=== PATIENT | female | born 1995 | race African-American/Black ===

== ENCOUNTER 2024-05-28 08:46 | Emergency (ER) | payer MEDICAID, OTHER ==
[~2024-05-28] VITALS: Ht 170.2 cm; Wt 74.4 kg
[~2024-05-28 08:46] MED LIST: ALBU0.084
--- NOTE | 2024-05-28 09:31 | ED.PDOC ---
HEAD SETTER HPI Comments 28-year-old female presents with a chief complaint of vaginal bleeding. Patient states that on Friday she went to [facility], and was told on Friday after doing blood tests that she was . However, patient states that she has been having pelvic cramping and vaginal bleeding and most recently passed a large clot that looked like products of conception. Patient reports that on Friday her HCG level was 3000 and then on Friday it was 3060. Patient reports that she was instructed to follow-up with a hospital for a possible DNC. Patient denies having an HEAD SETTER. Chief Complaint: Vaginal Bleed Time Seen by MD: 08:59 Reviewed Notes: Medications, Allergies Allergies: Coded Allergies: NO KNOWN ALLERGIES (Unverified , 03/23/11) Home Meds Reported Medications Albuterol Sulfate (Albuterol Sulfate) 0.083 % Neb 03/23/11 Information Source: Patient Mode of Arrival: Ambulatory Timing: Days Prehospital treatment: None Bleeding Quality: Clotted, Products of Conception Past Medical History PAST MEDICAL HISTORY: Denies Surgical History: Denies all surgeries WARP SCOURING VAT TENDER History: No Pertinent WARP SCOURING VAT TENDER History Family History Family History: Reviewed,noncontributory to illness, No family hx of Cancer, No family hx of DM, No family hx of Heart jeanmarie, No family hx of HTN, No family hx ofKidney jeanmarie, No family hx of Liver jeanmarie, No family hx of Lung jeanmarie, No family hx of Stroke Social History Smoker: Non-Smoker Alcohol: Denies ETOH Use Drugs: Denies Drug Use Constitutional: denies: chills, diaphoresis, fatigue, fever, malaise, sweats, weakness, others EENTM: denies: blurred vision, double vision, ear bleeding, ear discharge, ear drainage, ear pain, ear ringing, eye pain, eye redness, hearing loss, mouth pain, mouth swelling, nasal discharge, nose bleeding, nose congestion, nose pain, photophobia, tearing, throat pain, throat swelling, voice changes, others Respiratory: denies: cough, hemoptysis, orthopnea, SOB at rest, shortness of breath, SOB with excertion, stridor, wheezing, others Cardiovascular: denies: chest pain, dizzy spells, diaphoresis, Dyspnea on exertion, edema, irregular heart beat, left arm pain, lightheadedness, palpitations, PND, syncope, others Gastrointestinal: reports: abdominal pain; denies: abdomen distended, blood streaked bowels, constipated, diarrhea, dysphagia, difficulty swallowing, hematemesis, melena, nausea, poor appetite, poor fluid intake, rectal bleeding, rectal pain, vomiting, others Genitourinary: reports: abnormal vagina bleeding, ; denies: burning, dyspareunia, dysuria, flank pain, frequency, hematuria, incontinence, pain, vagina discharge, urgency, others Neurological: denies: dizziness, fainting, headache, left sided numbness, left sided weakness, numbness, paresthesia, pre-existing deficit, right sided numbness, right sided weakness, seizure, speech problems, tingling, tremors, weakness, others Musculoskeletal: denies: back pain, gout, joint pain, joint swelling, muscle pain, muscle stiffness, neck pain, others Integumetry: denies: bruises, change in color, change in hair/nails, dryness, laceration, lesions, lumps, rash, wounds, others Allergic/Immunocompromised: denies: Difficulty Healing, Frequent Infections, Hives, Itching, others Hematologic/Lymphatic: denies: anemia, blood clots, easy bleeding, easy bruising, swollen glands, others Endocrine: denies: excessive hunger, excessive sweating, excessive thirst, excessive urination, flushing, intolerance to cold, intolerance to heat, unexplained weight gain, unexplained weight loss, others Psychiatric: denies: anxiety, bipolar disorder, depression, hopeless, panic disorder, schizophrenia, sleepless, suicidal, others All Other Systems: Reviewed and Negative Physical Exam General Appearance: No Apparent Distress, Normal HEENT: Normal ENT Inspection, Pharynx Normal, TMs Normal Neck: Full Range of Motion, Non-Tender, Normal, Normal Inspection Respiratory: Chest Non-Tender, Lungs Clear, No Accessory Muscle Use, No Respiratory Distress, Normal Breath Sounds Cardiovascular: No Edema, No JVD, No Murmur, No Gallop, Normal Peripheral Pulses, Regular Rate/Rhythm Breast Exam: Deferred Gastrointestinal: No Organomegaly, Non Tender, No Pulsatile Mass, Normal Bowel Sounds, Soft Genitalia: Deferred Pelvic: Other (MILD DIFFUSE LOWER ABDOMEN PAIN) Rectal: Deferred Extremities: No calf tenderness, Normal capillary refill, Normal inspection, Normal range of motion, Non-tender, No pedal edema Musculoskeletal : Apperance: Normal Neurologic: Alert, client evaluator II-XII nml as Tested, No Motor Deficits, Normal Affect, Normal Mood, No Sensory Deficits Cerebellar Function: Normal Reflexes: Normal Skin: Dry, Normal Color, Warm Lymphatic: No Adenopathy Was a procedure done? Was a procedure done?: No Differential Diagnosis (WARP SCOURING VAT TENDER) Vaginal Bleeding: - Complete, - Incomplete, - Inevitable, - Missed, - Threatened, Ectopic , Menorrhagia, UTI Vaginal Discharge: X-Ray, Labs, Meds, VS Vital Signs Date Time Temp Pulse Resp B/P (MAP) Pulse Ox O2 Delivery O2 Flow Rate FiO2 05/28/24 10:19 91 91 98 Room Air 05/28/24 10:19 91 18 113/65 (81) 98 05/28/24 08:59 98.2 98 16 104/58 (73) 98 Lab Test 05/28/24 09:58 05/28/24 08:55 Range/Units White Blood Count 4.6 4.4-10.8 10^3/uL Red Blood Count 3.90 L 4.0-5.20 10^6/uL Hemoglobin 11.8 L 12.2-16.2 g/dL Hematocrit 35.6 L 36.0-46.0 % Mean Corpuscular Volume 91.2 80.0-100.0 fL Mean Corpuscular Hemoglobin 30.4 28.0-32.0 pg Mean Corpuscular Hemoglobin Concent 33.3 32.0-36.0 g/dL Red Cell Distribution Width 15.3 H 11.8-14.3 % Platelet Count 281 140-450 10^3/uL Mean Platelet Volume 7.2 6.9-10.8 fL Neutrophils (%) (Auto) 51.1 37.0-80.0 % Lymphocytes (%) (Auto) 37.5 10.0-50.0 % Monocytes (%) (Auto) 9.5 0.0-12.0 % Eosinophils (%) (Auto) 1.4 0.0-7.0 % Basophils (%) (Auto) 0.5 0.0-2.0 % Neutrophils # (Auto) 2.4 1.6-8.6 10 ^3/uL Lymphocytes # (Auto) 1.7 0.4-5.4 10 ^3/uL Monocytes # (Auto) 0.4 0-1.3 10 ^3/uL Eosinophils # (Auto) 0.1 0-0.8 10 ^3/uL Basophils # (Auto) 0 0-0.2 10 ^3/uL Nucleated Red Blood Cells 0.0 % Sodium Level 138 136-145 mmol/L Potassium Level 3.9 3.5-5.1 mmol/L Chloride Level 106 98-107 mmol/L Carbon Dioxide Level 27 20-31 mmol/L Anion Gap 5 5-15 Blood Urea Nitrogen 7 L 9-23 mg/dL Creatinine 0.72 0.550-1.02 mg/dL Glomerular Filtration Rate Calc 116 >90 mL/min BUN/Creatinine Ratio 9.7 L 10.0-20.0 Serum Glucose 95 74-106 mg/dL Calcium Level 9.5 8.7-10.4 mg/dL Beta HCG, Quantitative 2304.6 H 1.5-4.2 mIU/mL Urine Test Positive Negative Current Medications Medications (Trade) Dose Ordered Sig/Corrine Route Start Time Stop Time Status Last Admin Acetaminophen (Tylenol Tablet Or Capsule) 500 mg ONCE ONCE PO 05/28/24 09:45 05/28/24 09:46 DC 05/28/24 09:45 PATIENT: JUDY CHINCHILLA AACCT: [id number]: [id number] : 1995 LOC: ER ROOM / BED: / AGE / SEX: 28 / F ADM STATUS: REG ER SERVICE 0000 ORDERING PHYSICIAN: ANGEL LEAL MD PROCEDURE(s): OBTVG - OB TRANS VAGINAL US REASON: R/O ECTOPIC ORDER NUMBER(s): [id number], ACCESSION NUMBER(s): [id number] OB ULTRASOUND <14 WEEKS: HISTORY: ro ectopic TECHNIQUE: Multiple real-time grayscale sonographic images of the pelvis with duplex Doppler color flow, spectral and M-mode analysis. TRANSDUCERS: Transabdominal and transvaginal FINDINGS: The uterus measures 9 x 6 x 5 cm The cervix not visualized. Right ovary measures 3x 1 x 2 cm with normal Doppler color flow Left ovary measures 3 x 2 x 2 cm with normal Doppler color flow No gestational sac is noted. There is a left adnexal structure with ring of fire sign present. IMPRESSION: No gestational sac is noted. There is a 2 x 2 x 2 cm left adnexal structure with ring of fire sign present. Ectopic not excluded. Correlate with beta hCGs. Critical Result: Ectopic Findings discussed with Dr. Suárez , at 05/28/2024 12:08 PM, and acknowledged receipt and understanding of the findings. .. ATED BY: THA PEREIRA MD DICTATED DATE/TIME: 05/28/241208 SIGNED BY: THA PEREIRA MD SIGNED DATE/TIME: 05/28/24 120 28-year-old female presents here with vaginal bleeding lower uterine cramping. Blood work has been done which demonstrates a beta quant proximally 2300. Ultrasound transvaginally has not done which does demonstrate concern for left- sided ectopic . I immediately consulted OBGYN Dr. Brennan and asked him to see the patient. He has physically seen the patient in the ER please see his notes further details. At this point he would like to follow serial beta hCG. He has requested the patient return back to the ER in 2 days for another HCG. He advised given the ectopic small and patient is currently stable safe for current discharge. I discussed the case with patient and ju velasco. They are comfortable with the plan. They have good access to a car and state they live 5 minutes away. I spoke to both of them advised that if any point she has worsening of symptoms or does not look well they need to return back to the ER immediately. Both understand and are agreeable with the plan. Patient is Rh positive and does not require RhoGAM. Patient has a sample of the paroxetine conception that she passed, is requesting be sent for pathology to determine if this fetus or blood Time of 1ST Reevaluation: 10:00 Reevaluation 1ST: Unchanged Time of 2ND Reevaluation: 13:45 Reevaluation 2ND: Unchanged Patient Education/Counseling: Diagnosis, Treatment, Prognosis Family Education/Counseling: Diagnosis, Treatment, Prognosis Departure 1 Departure Time of Disposition: 14:00 Impression: Primary Impression: Incomplete Disposition: HOME / SELF CARE / HOMELESS Condition: Stable Additional Instructions: Return to the ER in 2 days (Friday for repeat blood work and Ultrasound). Return sooner at any point if your symptoms worsen or persist. Discharged With: Self, Spouse Critical Care Note Critical Care Time?: No Stability Stability form required: No I personally scribed for ANGEL LEAL MD ([email or web address]) on 05/28/24 at 13:35. Electronically submitted by Ayad Nguyen [email or web address]). ANGEL LEAL MD May 28, 2024 09:31
[2024-05-28] MEDS: ACETAMINOPHEN 500 MG TAB or CAP PO ONE (09:45)
[2024-05-28 10:19] VITALS: BP 113/65; PULSE 91; RESP 91; O2SAT 98
[2024-05-28 10:20] LABS: Basophils # (auto) 0 10 ^3/uL (0-0.2); Basophils % (auto) 0.5 % (0.0-2.0); Eosinophils # (auto) 0.1 10 ^3/uL (0-0.8); Eosinophils % (auto) 1.4 % (0.0-7.0); Hematocrit 35.6 % (36.0-46.0); Hemoglobin 11.8 g/dL (12.2-16.2); Lymphocytes # (auto) 1.7 10 ^3/uL (0.4-5.4); Lymphocytes % (auto) 37.5 % (10.0-50.0); Mean Corpuscular Hemoglobin 30.4 pg (28.0-32.0); Mean Corpuscular Hgb Conc. 33.3 g/dL (32.0-36.0); Mean Corpuscular Volume 91.2 fL (80.0-100.0); Monocytes # (auto) 0.4 10 ^3/uL (0-1.3); Monocytes % (auto) 9.5 % (0.0-12.0); Neutrophils # (auto) 2.4 10 ^3/uL (1.6-8.6); Neutrophils % (auto) 51.1 % (37.0-80.0); Platelet Count (auto) 281 10^3/uL (140-450); Red Cell Distribution Width 15.3 % (11.8-14.3); White Blood Cell 4.6 10^3/uL (4.4-10.8)
[2024-05-28 10:30] LABS: Anion Gap 5 (5-15); Carbon Dioxide 27 mmol/L (20-31); Chloride 106 mmol/L (98-107); Potassium 3.9 mmol/L (3.5-5.1); Sodium 138 mmol/L (136-145)
[2024-05-28 10:31] LABS: Calcium 9.5 mg/dL (8.7-10.4)
[2024-05-28 10:36] LABS: BUN/Creatinine Ratio 9.7 (10.0-20.0); Glucose 95 mg/dL (74-106)
[2024-05-28 10:37] LABS: Blood Urea Nitrogen 7 mg/dL (9-23)
--- NOTE | 2024-05-28 12:06 | DVHINCON2 ---
Date of service: May 28, 2024 Reason for Consultation of Unknown origin, possible Ectopic History of Present Illness HPI 28y female SAB1, LMP approx 6 wk ago, unsure. Presented with 1st trim bleeding and cramping. Passed a large blood clot w/ possible tissue yesterday. [facility], and 3060 on Friday. Today HCG quant is 2304. Denies CP, SOB, dizziness or syncope. Does not have any pain currently and only light spotting. Pelvic US shows empty uterus, no fluid in Mccarthy's pouch, approx 2xm left ad nexal mass unruptured with "ring of fire" No definite gest sac, yolk sac or embryo seen inside or outside of uterus. ( of unknown location). Home Meds Reported Medications Albuterol Sulfate (Albuterol Sulfate) 0.083 % Neb 03/23/11 Past Medical History Cardiac: No pertinent Hx Pulmonary: No pertinent Hx Central Nervous System: No pertinent Hx GI: No pertinent Hx Hemotology/Oncology: No pertinent Hx Hepatobiliary: No pertinent Hx Psychiatric: No pertinent Hx Musculoskeletal: No pertinent Hx Rheumotologic: No pertinent Hx Infectious Disease: No peritnent Hx ENT: No pertinent Hx Renal/: No pertinent Hx Endocrine: No pertinent Hx Dermatology: No pertinent Hx Past Surgical History: No pertinent Hx Family History: No pertinent Hx Smoker: No Hx (Negative) Alocohol: None Drugs: None Domestic Violence: Neg Review of Systems Constitutional: No symptom reported Ears, Nose, & Throat: No symptom reported Eyes: No symptom reported Pulmonary/Respiratory: No symptom reported Cardiovascular: No symptom reported Gastrointestinal: Abdominal Pain Genitourinary: No symptom reported Musculoskeletal: No symptom reported Skin: No symptom reported Psychiatric: No symptom reported Endocrine: No symptom reported Hemotologic/Lymphatic: No symptom reported H&P Exam Vital Signs Vital Signs Date Time Temp Pulse Resp B/P (MAP) Pulse Ox O2 Delivery O2 Flow Rate FiO2 05/28/24 10:19 91 91 98 Room Air 05/28/24 10:19 113/65 (81) 05/28/24 08:59 98.2 General Appeara: Well developed, Normal Appearance Head Exam: Normal inspection Neck Exam: Normal inspection Eye Exam: bilateral eye PERRL Pulmonary/Respiratory: Normal inspection Cardiovascular/Chest: Normal inspection Abdominal Exam: Normal bowel sounds, Soft, No masses Labs/Xrays PATIENT: JUDY CHINCHILLA AACCT: [id number]: [id number] : 1995 LOC: ER ROOM / BED: / AGE / SEX: 28 / F ADM STATUS: REG ER SERVICE [id number] ORDERING PHYSICIAN: ANGEL LEAL MD PROCEDURE(s): OB4US - OB ULTRASOUND COMP LESS 14WKS REASON: ro ectopic ORDER NUMBER(s): [id number], ACCESSION NUMBER(s): [id number] OB ULTRASOUND <14 WEEKS: HISTORY: ro ectopic TECHNIQUE: Multiple real-time grayscale sonographic images of the pelvis with duplex Doppler color flow, spectral and M-mode analysis. TRANSDUCERS: Transabdominal and transvaginal FINDINGS: The uterus measures 9 x 6 x 5 cm The cervix not visualized. Right ovary measures 3x 1 x 2 cm with normal Doppler color flow Left ovary measures 3 x 2 x 2 cm with normal Doppler color flow No gestational sac is noted. There is a left adnexal structure with ring of fire sign present. IMPRESSION: No gestational sac is noted. There is a 2 x 2 x 2 cm left adnexal structure with ring of fire sign present. Ectopic not excluded. Correlate with beta hCGs. Critical Result: Ectopic Findings discussed with Dr. Suárez , at 05/28/2024 12:08 PM, and acknowledged receipt and understanding of the findings. .. ATED BY: DEVONTE PEREIRA MD DICTATED DATE/TIME: 05/28/24 1209 Labs Test 05/28/24 09:58 Range/Units White Blood Count 4.6 4.4-10.8 10^3/uL Red Blood Count 3.90 L 4.0-5.20 10^6/uL Hemoglobin 11.8 L 12.2-16.2 g/dL Hematocrit 35.6 L 36.0-46.0 % Mean Corpuscular Volume 91.2 80.0-100.0 fL Mean Corpuscular Hemoglobin 30.4 28.0-32.0 pg Mean Corpuscular Hemoglobin Concent 33.3 32.0-36.0 g/dL Red Cell Distribution Width 15.3 H 11.8-14.3 % Platelet Count 281 140-450 10^3/uL Mean Platelet Volume 7.2 6.9-10.8 fL Neutrophils (%) (Auto) 51.1 37.0-80.0 % Lymphocytes (%) (Auto) 37.5 10.0-50.0 % Monocytes (%) (Auto) 9.5 0.0-12.0 % Eosinophils (%) (Auto) 1.4 0.0-7.0 % Basophils (%) (Auto) 0.5 0.0-2.0 % Neutrophils # (Auto) 2.4 1.6-8.6 10 ^3/uL Lymphocytes # (Auto) 1.7 0.4-5.4 10 ^3/uL Monocytes # (Auto) 0.4 0-1.3 10 ^3/uL Eosinophils # (Auto) 0.1 0-0.8 10 ^3/uL Basophils # (Auto) 0 0-0.2 10 ^3/uL Nucleated Red Blood Cells 0.0 % Sodium Level 138 136-145 mmol/L Potassium Level 3.9 3.5-5.1 mmol/L Chloride Level 106 98-107 mmol/L Carbon Dioxide Level 27 20-31 mmol/L Anion Gap 5 5-15 Blood Urea Nitrogen 7 L 9-23 mg/dL Creatinine 0.72 0.550-1.02 mg/dL Glomerular Filtration Rate Calc 116 >90 mL/min BUN/Creatinine Ratio 9.7 L 10.0-20.0 Serum Glucose 95 74-106 mg/dL Calcium Level 9.5 8.7-10.4 mg/dL Beta HCG, Quantitative 2304.6 H 1.5-4.2 mIU/mL Assessment/Plan Admitting Diagnosis: of Unknown location - Cannot rule out ectopic vs complete SAB Hemodynamically stable Non surgical abdomen Plan HCG x 2, 48h apart needed to make a diagnosis If inappropriate rise or plateau, maybe candidate for medical treatment of ectopic preg with Methotrexate. (Size is small < 3.5 cm, unruptured, and hemodynamically stable with HCG < 6500) No acute WAREDRESSER intervention indicated at this time. F/U in ER in 2 days (Friday) for another Pelvic US and HCG Quant level to determine treatment plan. If HCG are dropping and mass is stable, can observe expectantly with serial HCG monitoring until resolved. Can represent a complete SAB with a simple Lt ov cyst. Thank you for allowing me to participate in the care of this patient Plan discussed with: Patient Visit Coding OBGYN Date of Service: May 28, 2024 Billing Provider: DREW SAN DO SEAMER PANTY HOSE Common Visit Codes: CONSULTATION ONLY SEAMER PANTY HOSE Consultation Codes: [id number] CONSULT <55MIN DREW SAN DO May 28, 2024 12:06
--- NOTE | 2024-05-28 12:11 | DVH ---
OB ULTRASOUND <14 WEEKS: HISTORY: ro ectopic TECHNIQUE: Multiple real-time grayscale sonographic images of the pelvis with duplex Doppler color f low, spectral and M-mode analysis. TRANSDUCERS: Transabdominal and transvaginal FINDINGS: The uterus measures 9 x 6 x 5 cm The cervix not visualized. Right ovary measures 3x 1 x 2 cm with normal Doppler color flow Left ovary measures 3 x 2 x 2 cm with normal Doppler color flow No gestational sac is noted. There is a left adnexal structure with ring of fire sign present. IMPRESSION: No gestational sac is noted. There is a 2 x 2 x 2 cm left adnexal structure with ring of fire sign pr esent. Ectopic not excluded. Correlate with beta hCGs. Critical Result: Ectopic Findings discussed with Dr. Suárez , at 05/28/2024 12:08 PM, and acknowledged receipt and understa nding of the findings. ..
== END 2024-05-28 14:17 | disposition home or self-care (01) ==
LOC: ER 08:46
DX: O03.4 Incomplete spontaneous abortion without complication (principal); Z3A.01 Less than 8 weeks gestation of pregnancy
CPT/HCPCS: 36415; 76801; 76817; 80048; 81025; 84702; 85025; 86901

== ENCOUNTER 2024-05-30 09:51 | Inpatient (IN) | payer MEDICAID ==
[~2024-05-30] VITALS: Ht 170.2 cm; Wt 73.4 kg
--- NOTE | 2024-05-30 10:16 | ED.PDOC ---
History of Present Illness HPI Comments 28-year-old female presents with a chief complaint of follow-up ultrasound request. Patient was seen here at this facility x 2 days ago and was told that she possibly had an incomplete miscarriage and possible ectopic , but that ultrasound could not confirm it. Patient was instructed to come back to this ER for a follow-up Beta HCG level and Ultrasound. Patient states that she is passing clots vaginally. No other symptoms or modifying factors present at this time. Chief Complaint: Time Seen by MD: 10:09 Primary Care Provider: KEIKO WILLIAM Reviewed Notes: Medications, Allergies Allergies: Coded Allergies: NO KNOWN ALLERGIES (Unverified , 03/23/11) Home Meds Reported Medications Albuterol Sulfate (Albuterol Sulfate) 0.083 % Neb 03/23/11 Information Source: Patient Mode of Arrival: Ambulatory Severity: Moderate Timing: Days Duration: Since onset Prehospital treatment: None Past Medical History PAST MEDICAL HISTORY: Denies Surgical History: Denies all surgeries PROTOTYPE CARPENTER History: No Pertinent PROTOTYPE CARPENTER History Family History Family History: Reviewed,noncontributory to illness, No family hx of Cancer, No family hx of DM, No family hx of Heart jeanmarie, No family hx of HTN, No family hx ofKidney jeanmarie, No family hx of Liver jeanmarie, No family hx of Lung jeanmarie, No family hx of Stroke Social History Smoker: Non-Smoker Alcohol: Denies ETOH Use Drugs: Denies Drug Use Constitutional: denies: chills, diaphoresis, fatigue, fever, malaise, sweats, weakness, others EENTM: denies: blurred vision, double vision, ear bleeding, ear discharge, ear drainage, ear pain, ear ringing, eye pain, eye redness, hearing loss, mouth pain, mouth swelling, nasal discharge, nose bleeding, nose congestion, nose pain, photophobia, tearing, throat pain, throat swelling, voice changes, others Respiratory: denies: cough, hemoptysis, orthopnea, SOB at rest, shortness of breath, SOB with excertion, stridor, wheezing, others Cardiovascular: denies: chest pain, dizzy spells, diaphoresis, Dyspnea on exertion, edema, irregular heart beat, left arm pain, lightheadedness, palpitations, PND, syncope, others Gastrointestinal: denies: abdomen distended, abdominal pain, blood streaked bowels, constipated, diarrhea, dysphagia, difficulty swallowing, hematemesis, melena, nausea, poor appetite, poor fluid intake, rectal bleeding, rectal pain, vomiting, others Genitourinary: reports: abnormal vagina bleeding, ; denies: burning, dyspareunia, dysuria, flank pain, frequency, hematuria, incontinence, pain, vagina discharge, urgency, others Neurological: denies: dizziness, fainting, headache, left sided numbness, left sided weakness, numbness, paresthesia, pre-existing deficit, right sided numbness, right sided weakness, seizure, speech problems, tingling, tremors, weakness, others Musculoskeletal: denies: back pain, gout, joint pain, joint swelling, muscle pain, muscle stiffness, neck pain, others Integumetry: denies: bruises, change in color, change in hair/nails, dryness, laceration, lesions, lumps, rash, wounds, others Allergic/Immunocompromised: denies: Difficulty Healing, Frequent Infections, Hives, Itching, others Hematologic/Lymphatic: denies: anemia, blood clots, easy bleeding, easy bruising, swollen glands, others Endocrine: denies: excessive hunger, excessive sweating, excessive thirst, excessive urination, flushing, intolerance to cold, intolerance to heat, unexplained weight gain, unexplained weight loss, others Psychiatric: denies: anxiety, bipolar disorder, depression, hopeless, panic disorder, schizophrenia, sleepless, suicidal, others All Other Systems: Reviewed and Negative Physical Exam General Appearance: No Apparent Distress, Normal HEENT: Normal ENT Inspection, Pharynx Normal, TMs Normal Neck: Full Range of Motion, Non-Tender, Normal, Normal Inspection Respiratory: Chest Non-Tender, Lungs Clear, No Accessory Muscle Use, No Respiratory Distress, Normal Breath Sounds Cardiovascular: No Edema, No JVD, No Murmur, No Gallop, Normal Peripheral Pulses, Regular Rate/Rhythm Breast Exam: Deferred Gastrointestinal: No Organomegaly, Non Tender, No Pulsatile Mass, Normal Bowel Sounds, Soft Genitalia: Deferred Pelvic: Deferred Rectal: Deferred Extremities: No calf tenderness, Normal capillary refill, Normal inspection, Normal range of motion, Non-tender, No pedal edema Musculoskeletal : Apperance: Normal Neurologic: Alert, inseam trimming machine operator II-XII nml as Tested, No Motor Deficits, Normal Affect, Normal Mood, No Sensory Deficits Cerebellar Function: Normal Reflexes: Normal Skin: Dry, Normal Color, Warm Lymphatic: No Adenopathy Was a procedure done? Was a procedure done?: No Differential Dx Considerations may include: ectopic X-Ray, Labs, Meds, VS Vital Signs Date Time Temp Pulse Resp B/P (MAP) Pulse Ox O2 Delivery O2 Flow Rate FiO2 05/30/24 10:00 98.7 97 16 104/51 (68) 96 Lab Test 05/30/24 10:16 Range/Units Beta HCG, Quantitative 2284.6 H 1.5-4.2 mIU/mL Time of 1ST Reevaluation: 10:39 Reevaluation 1ST: Unchanged Patient Education/Counseling: Diagnosis, Treatment, Prognosis Family Education/Counseling: Diagnosis, Treatment, Prognosis Departure 1 Departure Time of Disposition: 14:46 (Discussed with doctors and OBGYN who recommends patient be admitted to the hospitalist service OB we will follow up. Keep patient NPO and they will plan for a procedure in the morning.) Impression: Primary Impression: Ectopic Qualified Codes: O00.202 - Left ovarian without intrauterine Disposition: ADMITTED INPATIENT Admit to: Med Surg Condition: Serious Critical Care Note Critical Care Time?: No I personally scribed for ANGEL LEAL MD ([email or web address]) on 05/30/24 at 10:16. Electronically submitted by Ayad Nguyen [email or web address]). ANGEL LEAL MD May 30, 2024 10:16 VINNY RODRIGUEZ MD May 30, 2024 14:47
--- NOTE | 2024-05-30 12:19 | DVH ---
OB ULTRASOUND <14 WEEKS: HISTORY: repear ultrasound TECHNIQUE: Multiple real-time grayscale sonographic images of the pelvis with duplex Doppler color f low, spectral and M-mode analysis. TRANSDUCERS: C 5-9 COMPARISON: US OB ULTRASOUND COMP LESS 14WKS on DOS: 05/28/24 FINDINGS: The uterus measures 9.5 x 6.2 x 5.2 cm Right ovary measures 2.5 cm with normal Doppler color flow. Left ovary measures 2.2 cm with normal Doppler color flow. Questionable ectopic is again seen in the left adnexa. The structure measures 2.6 x 2.1 x 2.3 cm. IMPRESSION: Questionable ectopic is again seen in the left adnexa, grossly unchanged since May 28, 2024.
[2024-05-30 15:36] LABS: Basophils # (auto) 0 10 ^3/uL (0-0.2); Basophils % (auto) 0.4 % (0.0-2.0); Eosinophils # (auto) 0.1 10 ^3/uL (0-0.8); Eosinophils % (auto) 1.1 % (0.0-7.0); Hematocrit 37.2 % (36.0-46.0); Hemoglobin 12.5 g/dL (12.2-16.2); Mean Corpuscular Hemoglobin 30.7 pg (28.0-32.0); Mean Corpuscular Hgb Conc. 33.5 g/dL (32.0-36.0); Mean Corpuscular Volume 91.7 fL (80.0-100.0); Monocytes # (auto) 0.4 10 ^3/uL (0-1.3); Monocytes % (auto) 7.1 % (0.0-12.0); Neutrophils # (auto) 2.9 10 ^3/uL (1.6-8.6); Neutrophils % (auto) 54.4 % (37.0-80.0); Nucleated Red Blood Cells % 0.1 %; Platelet Count (auto) 319 10^3/uL (140-450); Red Blood Cells 4.06 10^6/uL (4.0-5.20); Red Cell Distribution Width 15.7 % (11.8-14.3); White Blood Cell 5.4 10^3/uL (4.4-10.8)
[2024-05-30 15:41] LABS: Chloride 106 mmol/L (98-107); Potassium 3.8 mmol/L (3.5-5.1); Sodium 140 mmol/L (136-145)
[2024-05-30 15:42] LABS: Anion Gap 8 (5-15); Calcium 10.2 mg/dL (8.7-10.4); Carbon Dioxide 26 mmol/L (20-31)
[2024-05-30 15:47] LABS: BUN/Creatinine Ratio 9.9 (10.0-20.0); Glucose 94 mg/dL (74-106)
[2024-05-30 15:52] LABS: Blood Urea Nitrogen 7 mg/dL (9-23); Partial Thromboplastin Time 28.5 SEC (24.5-34.5); Prothrombin Time 10.6 sec (9.3-11.8)
[2024-05-30] MEDS ORDERED: ALBUTEROL SULF 2.5 MG/0.5ML(0.5%) NEB SOLN NEB PRN (17:00)
--- NOTE | 2024-05-30 17:09 | DVHHP2 ---
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 The patient was seen at this facility two days ago and was diagnosed with possible incomplete miscarriage and possible ectopic . The patient was advised to follow-up in ED two days later to check on beta hCG and ultrasound. Patient states that she continues to have vaginal bleeding with clots. Denies dizziness, syncope, chest pain, palpitations, abdominal pain, or other acute symptoms. Past Medical History Asthma Anemia Past Surgical History Denies Family History Reviewed, non-contributory to the management of this case. Past Social History Admits to marijuana use Admits to tobacco use Denies EtOH abuse Review of Systems Constitutional: Yes: Malaise; No: Fever, Chills, Sweats, Weakness, Other Eyes: No: Pain, Vision change, Conjunctivae inflammation, Eyelid inflammation, Other, Redness ENT: No: Ear pain, Ear discharge, Nose pain, Nose discharge, Nose congestion, Mouth pain, Mouth swelling, Throat pain, Throat swelling, Other Respiratory: No: Cough, Dry, Shortness of breath, SOB with excertion, Wheezing, Hemoptysis, Pleuritic Pain, Sputum, Wheezing, Other Cardiovascular: No: Chest Pain, Palpitations, Orthopnea, Paroxysmal Noc. Dyspnea, Edema, Lt Headedness, Other Gastrointestinal: No: Nausea, Vomiting, Abdominal Pain, Diarrhea, Constipation, Melena, Hematochezia, Other Genitourinary: No Dysuria, No Frequency, No Incontinence, No Hematuria, No Retention; Other (Vaginal bleeding) Musculoskeletal: No: other, neck pain, shoulder pain, arm pain, back pain, hand pain, leg pain, foot pain Skin: No: Rash, Lesions, Jaundice, Bruising, Other Neurological: No: Weakness, Numbness, Incoordination, Change in speech, Confusion, Seizures, Other Allergies: Coded Allergies: NO KNOWN ALLERGIES (Unverified , 03/23/11) Exam Vital Signs Vital Signs Date Time Temp Pulse Resp B/P (MAP) Pulse Ox O2 Delivery O2 Flow Rate FiO2 05/30/24 10:00 98.7 97 16 104/51 (68) 96 General Appearance: Alert, Oriented X3, Cooperative, No acute distress HEENT: Atraumatic, PERRLA, EOMI, Mucous membr. moist/pink Respiratory: Clear to auscultation, Normal air movement Cardiovascular: Regular rate, Normal S1, Normal S2 Abdominal: Normal bowel sounds, Soft, No tenderness Extremities: No clubbing, No cyanosis, No edema Skin: No rashes, No breakdown, No significant lesion Neuro: Normal gait, Normal speech, Strength at 5/5 X4 ext, Normal tone Psych/Mental Status: Mental status NL Labs/Xrays Labs Test 05/30/24 15:24 05/30/24 10:16 Range/Units White Blood Count 5.4 4.4-10.8 10^3/uL Red Blood Count 4.06 4.0-5.20 10^6/uL Hemoglobin 12.5 12.2-16.2 g/dL Hematocrit 37.2 36.0-46.0 % Mean Corpuscular Volume 91.7 80.0-100.0 fL Mean Corpuscular Hemoglobin 30.7 28.0-32.0 pg Mean Corpuscular Hemoglobin Concent 33.5 32.0-36.0 g/dL Red Cell Distribution Width 15.7 H 11.8-14.3 % Platelet Count 319 140-450 10^3/uL Mean Platelet Volume 7.2 6.9-10.8 fL Neutrophils (%) (Auto) 54.4 37.0-80.0 % Lymphocytes (%) (Auto) 37.0 10.0-50.0 % Monocytes (%) (Auto) 7.1 0.0-12.0 % Eosinophils (%) (Auto) 1.1 0.0-7.0 % Basophils (%) (Auto) 0.4 0.0-2.0 % Neutrophils # (Auto) 2.9 1.6-8.6 10 ^3/uL Lymphocytes # (Auto) 2.0 0.4-5.4 10 ^3/uL Monocytes # (Auto) 0.4 0-1.3 10 ^3/uL Eosinophils # (Auto) 0.1 0-0.8 10 ^3/uL Basophils # (Auto) 0 0-0.2 10 ^3/uL Nucleated Red Blood Cells 0.1 % Prothrombin Time 10.6 9.3-11.8 sec Prothrombin Time INR 1.00 0.9-1.15 Activated Partial Thromboplast Time 28.5 24.5-34.5 SEC Sodium Level 140 136-145 mmol/L Potassium Level 3.8 3.5-5.1 mmol/L Chloride Level 106 98-107 mmol/L Carbon Dioxide Level 26 20-31 mmol/L Anion Gap 8 5-15 Blood Urea Nitrogen 7 L 9-23 mg/dL Creatinine 0.71 0.550-1.02 mg/dL Glomerular Filtration Rate Calc 118 >90 mL/min BUN/Creatinine Ratio 9.9 L 10.0-20.0 Serum Glucose 94 74-106 mg/dL Calcium Level 10.2 8.7-10.4 mg/dL Beta HCG, Quantitative 2284.6 H 1.5-4.2 mIU/mL PROCEDURE(s): OB4US - OB ULTRASOUND COMP LESS 14WKS REASON: repear ultrasound ORDER NUMBER(s): [id number], ACCESSION NUMBER(s): [id number] OB ULTRASOUND <14 WEEKS: HISTORY: [facility] ultrasound TECHNIQUE: Multiple real-time grayscale sonographic images of the pelvis with duplex Doppler color flow, spectral and M-mode analysis. TRANSDUCERS: C 5-9 COMPARISON: US OB ULTRASOUND COMP LESS 14WKS on DOS: 05/28/24 FINDINGS: The uterus measures 9.5 x 6.2 x 5.2 cm Right ovary measures 2.5 cm with normal Doppler color flow. Left ovary measures 2.2 cm with normal Doppler color flow. Questionable ectopic is again seen in the left adnexa. The structure measures 2.6 x 2.1 x 2.3 cm. IMPRESSION: Questionable ectopic is again seen in the left adnexa, grossly unchanged since May 28, 2024. Assessment/Plan Assessment/Plan # rule out ectopic # vaginal bleeding, ?Missed Admit to medical/Surg unit [facility] former brace end consult NPO after midnight # asthma Neb treatment as needed # marijuana and tobacco use Counseled on smoking and marijuana cessation Nicotine patch UDS # history of anemia Monitor Medical plan discussed with patient and spouse Plan discussed with: Patient Date of Service: May 30, 2024 Billing Provider: BECCA DEAN Common Visit Codes: [id number] INP/OBS CARE (HIGH) BECCA DEAN May 30, 2024 17:09
[2024-05-30] MEDS: NICOTINE 7MG/24HR TOPICAL PATCH TD SCH (17:11)
[2024-05-30 21:00] VITALS: BP 126/66; PULSE 97; RESP 16; TEMP 97.2; O2SAT 99
[2024-05-30 21:06] VITALS: O2SAT 99
== END 2024-05-30 22:11 | disposition left against medical advice (07) | DRG 564 ==
LOC: ER 09:51 → OVERFLOW 16:59
PROVIDERS: ADMIT Registered Nurse; ATTEND Internal Medicine
DX: O02.1 Missed abortion (principal); O00.80 Other ectopic pregnancy without intrauterine pregnancy; F12.90 Cannabis use, unspecified, uncomplicated; Z53.29 Procedure and treatment not carried out because of patient's decision for other reasons; J45.909 Unspecified asthma, uncomplicated; Z79.899 Other long term (current) drug therapy
CPT/HCPCS: 36415; 76801; 76817; 80048; 84702; 85025; 85610; 85730; 86850; 86900; 86901; G0378